=== PATIENT | female | born 1985 | race Caucasian/White ===

== ENCOUNTER → 2017-04-30 08:52 | Outpatient (CLI) | payer OTHER, SELFPAY | PROVIDERS: Family Provider Family Medicine; PCP Family Medicine; Visit Provider Family Medicine | DX: R00.2 Palpitations (principal); R55 Syncope and collapse; R06.02 Shortness of breath | CPT/HCPCS: 93225; 93226 ==

== ENCOUNTER → 2017-08-02 15:32 | Outpatient (CLI) | payer OTHER, SELFPAY | PROVIDERS: Family Provider Family Medicine; PCP Family Medicine; Visit Provider Otolaryngology | DX: J02.9 Acute pharyngitis, unspecified (principal) | CPT/HCPCS: 87070; 87077 ==

== ENCOUNTER 2025-02-08 19:01 | Emergency (ER) | payer OTHER, SELFPAY ==
[2025-02-08 19:07] VITALS: BP 154/103; PULSE 113; RESP 14; TEMP 36.5; O2SAT 100; BMI 28.6
--- NOTE | 2025-02-08 19:22 | EKG12_ITS ---
Test Reason : PALPS Blood Pressure : */* mmHG Vent. Rate : 111 BPM Atrial Rate : 111 BPM P-R Int : 144 ms QRS Dur : 80 ms QT Int : 328 ms P-R-T Axes : 62 29 31 degrees QTcB Int : 446 ms Sinus tachycardia Nonspecific ST abnormality Abnormal ECG Confirmed by Salazar Hilliard ([id number]), video effects editor YAYA WELCH ([id number]) on 02/10/2025 8:35:18 AM Referred By: RU Confirmed By: Salazar Hilliard
--- NOTE | 2025-02-08 19:23 | EDS_ITS ---
HPI History of Present Illness Chief Complaint: Palpitations Detail of Chief Complaint: Tachycardia Informant: patient Narrative Narrative: Patient presents to the emergency department with complaint of tachycardia. States that she was sitting on her couch when she felt like her heart started to race. Patient denies chest pain. She felt mildly short of breath. She tells me that she was seen at urgent care a week ago because she thought she was getting a sinus infection and they noted then that her heart rate was 130. Patient has been improving from that illness a week ago and today is the best she has felt in the last week. Patient also states that she has been having issues with elevated blood pressure over the last 6 months. She is currently not on blood pressure medications. She does not take any decongestions or new medications. No family history of WPW or rhythm abnormalities as far she knows. [facility] Medical History (Updated 02/08/25 @ 23:[address] Christianne Claire, DO) Acute suppurative otitis media with spontaneous rupture of ear drum, unspecified ear Home Medications ?Medication ?Instructions ?Recorded ?Last Taken ?Type norgestimate 0.25 mg-ethinyl 1 tab PO DAILY 02/21/23 U nknown History estradiol 0.035 mg tablet (Sprintec (28)) metoprolol succinate 25 mg 25 mg PO DAILY #30 tabs 09/26 Unknown Rx tablet,extended release 24 hr Allergy/AdvReac Type Severity Reaction Status Date / Time Seasonal Allergies: Uncoded Allergy Mild Other Verified 02/08/25 19:08 Family History (Updated 02/21/23 @ 10:36 by Vicenta Retana) Father CVA (cerebral vascular accident) Surgical History History of placement of ear tubes Social History (Updated 02/21/23 @ 10:37 by Vicenta Retana) Smoking Status: Never smoker alcohol intake: current details: social substance use type: does not use additional social history: pt denies vaping, denies marijuana use, denies edibles, denies aspirin use, Uses ibuprofen and tylenol as needed for back pain ROS ROS ED Review of Systems ROS Unobtainable: other Constitutional Constitutional ED: Reports lethargy; Denies chills, fever(s), sweats or weight loss Eyes Eyes: Denies blurry vision, change in vision or diplopia ENT ENT ED: Denies rhinorrhea or sore throat Cardiovascular Cardiovascular: Reports racing heartbeat; Denies chest pain or orthopnea Respiratory/Chest Respiratory/Chest: Reports dyspnea; Denies cough, dyspnea on exertion, orthopnea or sputum Gastrointestinal Gastrointestinal: Denies abdominal pain, diarrhea, nausea or vomiting Genitourinary Genitourinary ED: Denies dysuria, hematuria or urinary frequency Musculoskeletal Musculoskeletal: Denies arthralgias, back pain, myalgias or neck pain Integumentary Denies abscess, Abrasions or rash Neurologic Neurologic: Denies headache(s) or weakness Psychiatric Psychiatric: Denies anxiety, depression or suicidal thoughts Endocrine Endocrinology: Denies polydipsia, polyphagia or polyuria Hematologic/Lymphatic Hematologic/Lymphatic: Denies easy bleeding, easy bruising or lymphadenopathy Allergic/Immunologic Allergic/Immunologic ED: Denies mouth swelling, tongue swelling or urticaria EXAM Physical Exam Const Vital Signs: 02/08/25 19:07 02/08/25 19:13 02/08/25 21:28 Temperature 97.7 F L Temperature Source Oral Pulse Rate 113 H 122 H Respiratory Rate 14 15 Respiratory Effort Normal Blood Pressure 154/103 H Blood Pressure Mean 120 Pulse Ox 100 100 Oxygen Delivery Method Room Air 02/08/25 23:03 Temperature Temperature Source Pulse Rate 108 H Respiratory Rate 13 Respiratory Effort Blood Pressure Blood Pressure Mean Pulse Ox 99 Oxygen Delivery Method Room Air Positive well nourished and well developed General Appearance ED: well developed and NAD HEENT Reports TM's clear and moist mucous membranes normocephalic and atraumatic; Negative for trauma or tenderness Tympanic Membrane ED: Yes TM's clear Eyes PERRL and EOMs intact bilaterally General Eye ED: Negative for pale conjunctiva or scleral icterus Neck no lymphadenopathy, supple and no JVD General: Negative for tenderness Chest Wall inspection of chest normal and palpation of chest normal Chest: Negative for tenderness Resp normal respiratory effort and clear to auscultation bilaterally Effort and Inspection: Negative for respiratory distress or pain with movement Auscultation: Negative for rhonchi, wheezes or diminished lung sounds Cardio regular rhythm, S1 normal heart sound, S2 normal heart sound and no murmurs; Negative for regular rate Rate: tachycardic Peripheral Pulses: pulses 2+ throughout GI normal to inspection, nondistended, normoactive bowel sounds, soft to palpation, non-tender, non-distended and no masses Back/Spine no CVA tenderness and no thoracic nor lumbar tenderness Extremity normal to inspection General Extremety ED: Negative for edema General Extremity: Negative for edema Neuro oriented x3, CN's II-XII intact bilaterally, no sensory deficits noted and gait normal Sensorium / Orientation: awake, alert, oriented to person, oriented to place and oriented to time Motor Exam: strength 5/5 throughout and strength abnormal Psych mental status grossly normal Skin no rashes or lesions noted and no wounds MDM MDM MDM Narrative Medical decision making narrative: Patient presents with tachycardia while sitting. Also noted to have tachycardia week ago when at urgent care. She also has had been having some elevated blood pressures over the last 6 months or so. She denies recent travel or surgery. She denies chest pain. Clinically looks well. IV line established. EKG obtained on arrival showed a sinus rhythm with rate of 111 bpm with no acute ST segment changes. CBC with differential shows a white count of 13.9 with hemoglobin 12.6 and platelet count of 460. Chemistries unremarkable. Troponin less than six 2-hour delta troponin was 7. TSH slightly elevated 4.99. hCG was negative. Talk screen negative. Alcohol was 52. D-dimer obtained was elevated 0.[address] of the chest was obtained to rule out PE. Results of CT pending. I did discuss case with cardiology who recommended started patient on metoprolol 25 mg daily. They would be happy to follow her up in the office. Care of patient will be turned over to evening physician awaiting CT results and final disposition. Lab Data Attestation: I reviewed the patient's lab results. Labs: Laboratory Results - last 24 hr 02/08/25 02/08/25 02/08/25 19:05 20:49 21:50 WBC 13.9 H RBC 3.98 L Hgb 12.6 Hct 37.0 MCV 93.0 MCH 31.7 MCHC 34.1 RDW Std Deviation 38.4 RDW Coeff of Linda 11.3 L Plt Count 460 H MPV 9.2 Immature Gran % (Auto) 0.600 Neut % (Auto) 54.8 Lymph % (Auto) 36.6 [place] % (Auto) 5.7 Eos % (Auto) 1.7 Baso % (Auto) 0.6 Absolute Neuts (auto) 7.6 Absolute Lymphs (auto) 5.07 H Nucleated RBC % 0 D-Dimer Quant (PE/DVT) 0.78 H* Sodium 133 Potassium 3.3 Chloride 98 Carbon Dioxide 19.2 L Anion Gap 16 H BUN 9 Creatinine 0.71 Estim Creat Clear Calc 113.90 Est GFR (MDRD) Non-Af 110 BUN/Creatinine Ratio 13.1 Glucose 120 H Calcium 9.0 Troponin T High Sens < 6 Troponin T Hi Sens 2 Hr 7 TSH 4.990 H Serum , Qual NEGATIVE Urine Opiates Screen NEGATIVE U Buprenorphine Qual NEGATIVE Ur Oxycodone Screen NEGATIVE Urine Methadone Screen NEGATIVE Urine Fentanyl Screen NEGATIVE Ur Barbiturates Screen NEGATIVE Ur Phencyclidine Scrn NEGATIVE Ur Amphetamines Screen NEGATIVE U Benzodiazepines Scrn NEGATIVE Urine Cocaine Screen NEGATIVE U Cannabinoids Screen NEGATIVE Ethyl Alcohol 52.4 H Radiography Diagnostic Testing: Clinical Impression(s) from Imaging Studies Chest X-Ray 02/08/25 19:35 IMPRESSION: No acute cardiopulmonary abnormality. Reading Location: [facility] Discharge Plan Triage Chief Complaint: Palpitations ED Provider: Christianne Claire Dx/Rx/DC Orders Clinical Impression: Tachycardia, Hypertension Instructions: Understanding Tachycardia, ED Hypertension, To Be Confirmed, ED Tachycardia: PAT Prescriptions: New metoprolol succinate 25 mg tablet extended release 24 hr 25 mg PO DAILY Qty: 30 0RF No Action norgestimate-ethinyl estradiol [Sprintec (28)] 0.25-35 mg-mcg tablet 1 tab PO DAILY Primary Care Provider: Leeanne Hoang Referrals: Rubén Murphy MD [Med Staff - Active Staff, Cardiology] - 3-5 Days Leeanne Hoang PA-C [Primary Care Provider, Medical] Print Language: Upper Sorbian
--- OUTSIDE RECORDS SUMMARY | 2025-02-08 19:30 | XMS RPT_ITS | CCD ---
Author Organization [facility] Care Team Providers Care Staff Training And Development Manager Name Role Phone Mirtha Cuello Attending [place] Argyle CAROLEE, Juan Ramon Referring [facility] Juan Ramon ZARCO Primary Care Unavailable Unavailable Primary Care Provider [facility] JUAN RAMON Ruiz Attending [place] CRANEJUAN RAMON Consulting [place] CRANELAWRENCEJUAN RAMON Primary Care Unavailable CRANEJUAN RAMON Admitting Unavailable PROVIDER, UNKNOWN Consulting Unavailable Allergies Allergy Classification Reported Allergen(s) Allergy Type Date of Onset Reaction(s) Facility (1 source) Seasonal Allergies: Uncoded; Translations: [Seasonal Allergies: Uncoded] Propensity to adverse reactions (disorder) 3 [facility] Repository Problems Problem Classification Problem Date Documented Date Episodic/Chronic Nutritional deficiencies (1 source) Vitamin D deficiency, unspecified; Translations: [Vitamin D deficiency, unspecified] Onset: 01-03-2024 Chronic Other screening for suspected conditions (not mental disorders or infectious disease) (2 sources) Encounter for screening for cardiovascular disorders; Translations: [Encounter for screening for diabetes mellitus] Onset: 01-03-2024 Episodic Thyroid disorders (1 source) Nontoxic goiter, unspecified; Translations: [Nontoxic goiter, unspecified] Onset: 01-03-2024 Chronic Results Test Name Value Interpretation Reference Range Facility T3, FREE [CCL]on 01-04-2024 Free T3 [Mass/Vol] 3.1 pg/mL Normal 2.3-4.1 [facility] Comment on above: Result Comment: [facility] [address] [place] [address] Carlos Vasquez III, M.D. [id number] Performed By: #### 2 08891 #### [facility],[address] [place], [place] [address] THYROGLOBULIN AB [CCL]on Thyroglobulin Ab, Serum <0.9 Normal <4.0 [facility] Comment on above: Result Comment: The Thyroglobulin Antibody test was performed using the [employer] Unicel DXI paramagnetic particle chemiluminescent immunoassay method. Results obtained with different assay methods or kits cannot be used interchangeably. [facility] [address] [place] [address] Carlos Vasquez III, M.D. [id number] Performed By: #### 2 19870 #### [facility],[address] [place] [address] CMP with eGFRon 01-03-2024 AGE 38 years Normal [facility] Comment on above: Performed By: #### 2 62871 #### [address] [address] Albumin [Mass/Vol] 3.4 g/dL Normal 3.4 - 5.0 [facility] Comment on above: Performed By: #### 2 96130 #### [facility],[address] [place] [address]3558 Albumin/Globulin [Mass ratio] 0.9 {ratio} Normal 0.9 - 1.6 [facility] Comment on above: Performed By: #### 2 36361 #### [facility],[address] [place] [address]042 ALK PHOS 61 U/L Normal 46 - 116 [facility] Comment on above: Performed By: #### 2 76099 #### [address] [address] ALT [Catalytic activity/Vol] 42 U/L Normal 16 - 63 [facility] Comment on above: Performed By: #### 2 21380 #### [facility],[address] [place] [address] 24714 Anion gap [Moles/Vol] 12 mmol/L Normal 10 - 20 [facility] Comment on above: Performed By: #### 2 73801 #### [facility],[address] [place] [address] 58377 AST [Catalytic activity/Vol] 30 U/L Normal 13 - 39 [facility] Comment on above: Performed By: #### 2 63610 #### [facility],[address] [place] [address]3949 B/C RATIO 10 ratio Normal 0 - 30 [facility] Comment on above: Performed By: #### 2 27087 #### [facility],[address] [place] [address] 12077 Bilirubin [Mass/Vol] 0.4 mg/dL Normal 0.2 - 1.0 [facility] Comment on above: Performed By: #### 2 82126 #### [facility],[address] [place] [address]389 Calcium [Mass/Vol] 9.0 mg/dL Normal 8.5 - 10.1 [facility] Comment on above: Performed By: #### 2 29508 #### [facility],[address] [place] [address] 48398 Chloride [Moles/Vol] 103 mmol/L Normal 98 - 107 [facility] Comment on above: Performed By: #### 2 42373 #### [facility],[address] [place] [address] 17035 CMP with eGFR Normal [facility] Comment on above: Result Comment: COMP REHENSIVE METABOLIC PANEL Performed By: #### 2 99730 #### [facility],[address] [place] [address] 39294 CO2 [Moles/Vol] 26.6 mmol/L Normal 21.0 - 32.0 [facility] Comment on above: Performed By: #### 2 61848 #### [facility],[address] [place] [address]40 Creatinine [Mass/Vol] 0.90 mg/dL Normal 0.55 - 1.02 [facility] Comment on above: Performed By: #### 2 29299 #### [facility],[address] [place] [address] GFR/1.73 sq M.predicted among non-blacks MDRD (S/P/Bld) [Vol rate/Area] mL/min/{1.73_m2} Normal 60 - 999 [facility] Comment on above: Performed By: #### 2 45224 #### [facility],[address] [place] [address] Result Comment: ACCO RDING TO THE NATIONAL KIDNEY DISEASE EDUCATION PROGRAM(NKDE), A NORMAL eGFR IS A VALUE GREATER THAN OR EQUAL TO 60 ML/MIN/1.73 SQ METERS. CHRONIC KIDNEY DISEASE: <60mL/MIN/1.73 SQ METERS KIDNEY FAILURE: <15mL/MIN/1.73 SQ METERS THIS TEST SHOULD ONLY BE USED FOR PATIENTS 18 YEARS OF AGE AND OLDER. Globulin (S) [Mass/Vol] 4.0 g/dL High 1.5 - 3.8 [facility] Comment on above: Performed By: #### 2 31357 #### [facility],[address] [place] [address]79 Glucose [Mass/Vol] 85 mg/dL Normal 74 - 106 [facility] Comment on above: Performed By: #### 2 60797 #### [facility],[address] [place] [address]116 Potassium [Moles/Vol] 4.0 mmol/L Normal 3.5 - 5.1 [facility] Comment on above: Performed By: #### 2 44577 #### [facility],[address] [place] [address]36 Protein [Mass/Vol] 7.4 g/dL Normal 6.4 - 8.2 [facility] Comment on above: Performed By: #### 2 44285 #### [facility],[address] [place] [address] 76234 Sodium [Moles/Vol] 138 mmol/L Normal 136 - 145 [facility] Comment on above: Performed By: #### 2 23162 #### [facility],[address] [place] [address] 16832 Urea nitrogen [Mass/Vol] 9 mg/dL Normal 7 - 18 [facility] Comment on above: Performed By: #### 2 03910 #### [facility],[address] [place] [address] 56995 LIPID PROFILEon 01-03-2024 Cholesterol [Mass/Vol] 198 mg/dL Normal 0 - 240 [facility] Comment on above: Performed By: #### 2 27477 #### [facility],[address] [place] [address] 70361 Cholesterol in HDL [Mass/Vol] 80 mg/dL High 40 - 60 [facility] Comment on above: Performed By: #### 2 68513 #### [facility],[address] [place] [address] 99701 Cholesterol in LDL [Mass/Vol] 95 mg/dL Normal 0 - 129 [facility] Comment on above: Performed By: #### 2 07885 #### [facility],[address] [place] [address] 20940 Cholesterol.total/ Cholesterol in HDL [Mass ratio] 2.5 {ratio} Normal 0.0 - 5.0 [facility] Comment on above: Performed By: #### 2 71871 #### [facility],[address] [place] [address] 77155 Lipid 1996 panel Normal [facility] Comment on above: Result Comment: LIPI D PROFILE Performed By: #### 2 12591 #### [facility],[address] [place] [address] 45528 Triglyceride [Mass/Vol] 117 mg/dL Normal 0 - 150 [facility] Comment on above: Performed By: #### 2 11543 #### [facility],[address] [place] [address] 22506 T3Free SerPl-mCncon 01-03-20 24 Free T3 [Mass/Vol] 3.1 pg/mL Normal 2.3-4.1 [facility] Comment on above: Order Comment: Yamilet charles Type: BLOOD SPECIMEN Ordering Facility: [facility] Address: [address] [place] [address] Performed By: #### 3 051-0, TGAB #### [facility] CLIA [id number] [address] [place] [address] [place] T4-FREE (FREE THYROXINE)on Free T4 [Mass/Vol] 0.82 ng/dL Normal 0.76 - 1.46 [facility] Comment on above: Result Comment: P otential of falsely elevated results when biotin concentrations are > 10 ng/mL. Performed By: #### 2 93393 #### [facility],[address] [place], [place] [address] THYROGLOBULIN ANTIBODYon Thyroglobulin Ab Qn [IU]/mL Normal <4.0 [facility] Comment on above: Order Comment: Yamilet charles Type: BLOOD SPECIMEN Ordering Facility: [facility] Address: [address] [place] [address] Result Comment: The Thyroglobulin Antibody test was performed using the [employer] DXI paramagnetic particle chemiluminescent immunoassay method. Results obtained with different assay methods or kits cannot be used interchangeably. Performed By: #### 3 051-0, TGAB #### [facility] CLIA [id number] [address] [place] [address] [place] TSHon 01-03-2024 TSH Qn 1.51 m[IU]/L Normal 0.35 - 3.74 [facility] Comment on above: Performed By: #### 2 96336 #### [address] [address] VITAMIN D, 25 HYDROXYon 10- VitD 50.20 ng/mL Normal 30.00 - 100 [facility] Comment on above: Result Comment: 25-O HD3 indicates both endogenous production and supplementation. 25-OHD2 is an indicator of exogenous sources, such as diet or supplementation. Therapy is based on measurement of Total 25-OHD, with levels <20 ng/mL indicative of Vitamin D deficiency, while levels between 20 ng/mL and 30 ng/mL suggest insufficiency. Optimal levels are >=30ng/mL. Vitamin D, 25-OH D3 Not Established Vitamin D, 25-OH D2 Not Established Performed By: #### 2 66344 #### [facility],[address] [facility] [address] 36on 03-02-2023 36 Name of Caller: Earnestine Contact Reason for Appointment: Earnestine submitted an online request on 03/02/23 regarding a call back to get scheduled for a SQUARING SHEAR OPERATOR appt for Dx: Breast Reduction. Earnestine states she would like to get scheduled for an appt ANGEL. Earnestine states she is available for call back anytime. Please contact Earnestine and advise. Office Name: Plastic Surgery Medication Refills need, if any: N/A Medication Name: N/A Normal [facility] Plastic Surgery Visit Report on 02-21-2023 Plastic Surgery Visit Report [facility]astic Reconstructive Surgery [address] [place] [address], [address] [place] [address] OFFICE VISIT Date of Service: 02/21/23 MR#: [id number] Acct: [id number] Name: EARNESTINE CHERY Rep #: [id number] : 1985 Provider: Dr. Mirtha gómez MD Age/Sex: 38/F Location: [facility] Status: Signed Intake Vital Signs 02/21/23 10:37 Height 5 ft 6 in Weight: 169 lb 8 oz BMI 27.3 Blood Pressure Location Lt brachial Position Sitting Respiration 16 Pulse 92 Pulse Source Monitor Temp 97.9 F Temp Source Oral Pulse Oximetry (%) 97 Oxygen Delivery Method room air Intake Visit Reasons: BREAST REDUCTION Chief Complaint: breast reduction consult Allergies Seasonal Allergies: Uncoded Allergy (Mild, Verified 02/21/23 10:40) Other Medications norgestimate 0.25 mg-ethinyl estradiol 35 mcg tablet (Sprintec (28)) 1 tab PO DAILY 02/21/23 [History Confirmed 02/21/23] [facility] Medical History (Updated 02/21/23 @ 12:[address] Mirtha Cuello MD) Acute suppurative otitis media with spontaneous rupture of ear drum, unspecified ear Surgical History (Updated 02/21/23 @ 10:35 by Vicenta Retana) History of placement of ear tubes Family History (Updated 02/21/23 @ 10:36 by Vicenta Retana) Father CVA (cerebral vascular accident) Social History (Updated 02/21/23 @ 10:37 by Vicenta Retana) Smoking Status: Never smoker alcohol intake: current details: social substance use type: does not use additional social history: pt denies vaping, denies marijuana use, denies edibles, denies aspirin use, Uses ibuprofen and tylenol as needed for back pain HPI BREAST REDUCTION Details: Earnestine is a 38-year-old female who is in good health but complains of chronic low back and shoulder pain. She has had to use bras with wide straps to try to control the discomfort in her shoulders without success. She wears a DDD cup size bra. She has seen a chiropractor in the past and takes anti-inflammatories to help with the discomfort. She has not had a mammogram in the past nor is there a family history of breast cancer. She has not had children nor does she plan to breast-feed in the future. She denies use of nicotine or marijuana including edibles. Her PCP has advocated for her to have a breast reduction to alleviate her chronic back pain. ROS General General: Yes good health; No fatigue, fever(s) or weight loss HENMT HENMT: No rhinitis, sore throat/mouth sore, nasal congestion, contacts or glaucoma Endo Endocrine: No thyroid disease, polydipsia, heat intolerance, cold intolerance, hepatitis or excessive urine Skin Skin: No Bleeding, bruising, changing moles or suspicious lesion Musc Musculoskeletal: Yes back pain; No joint pain, joint stiffness, muscle weakness, osteoarthritis or Muscle aches/ myalgia Neuro Neurological: No headache(s), No lightheadedness and No numbness Cardio Cardiovascular: No chest pain, pacemaker, fatigue or shortness of breat with exertion Psych Psychiatric: No depression, claustrophobia or anxiety Resp Respiratory: No spitting up, shortness of breath, sleep apnea, asthma, emphysema, TB, Cough or Smoker Gastro Gastrointestinal: No diarrhea, constipation, blood in stool, nausea, vomiting or abdominal bloating Willi Hematologic: No anemia, No bleeding and No abnormal bleeding Genitourinary: No urinary frequency, blood in urine or incontinence Exam Details Patient with bilateral macromastia and grade 3 ptosis. There are no palpable breast masses or axillary adenopathy. Her breasts have a wide base and appear disproportionately large. She has marked sloping of her shoulders and hypertrophy of the trapezius muscle. Sternal Notch to N/A L-30cm; R-29.5cm; I estimate 350-400 gm reduction each side. The procedure of breast reduction was reviewed at length with the patient including the expected pre-, intra, and postoperative course. The incisions and scars as well as the limitations after surgery were reviewed. 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 I did review with her the potential for limitation in breast-feeding in the future. She is aware that the surgery would be done as an outpatient under a general anesthetic. All removed tissue would be sent for pathologic evaluation. Because of her age and family history, a mammogram would not be necessary prior to surgery. Const General: cooperative HENMT Head: normal to inspection Resp Effort Inspection: normal respiratory effort Neuro General: patient alert and patient oriented x3 Extrem General: normal to inspection Psych Appearance: grossly normal Affect: normal affect Speech and Movement: speech and movement normal Attitude: cooperative Coding Level of Care Code Off osbaldo,melissa,l (more content not included)... Normal [facility] CBC (INCLUDES DIFF/PLT)on Basophils (Bld) [#/Vol] 0.091 10*3/uL Normal 0-200 [facility] Comment on above: Performed By: #### 8 99, 7186, 21942, 76605 #### [facility] [address], [address] [place] [address] Mutuel Cashier: Burt Sanchez MD Basophils/100 WBC (Bld) 0.9 % Normal [facility] Comment on above: Performed By: #### 8 99, 2910, 40087, 52552 #### [facility] of [address], [address] [place] [address] Mutuel Cashier: Burt Sanchez MD Eosinophils (Bld) [#/Vol] 0.111 10*3/uL Normal 15-500 [facility] Comment on above: Performed By: #### 8 99, 6399, 39301, 54248 #### [facility] of [address], [address] [place] [address] Mutuel Cashier: Burt Sanchez MD Eosinophils/100 WBC (Bld) 1.1 % Normal [facility] Comment on above: Performed By: #### 8 99, 6399, 57196, 55736 #### [facility] of [place] [address] Mutuel Cashier: Burt Sanchez MD Erythrocyte distribution width (RBC) [Ratio] 11.7 % Normal 11.0-15.0 [facility] Comment on above: Performed By: #### 8 99, 6399, 74970, 21815 #### [facility] of [place] [address] Mutuel Cashier: Burt Sanchez MD Hematocrit (Bld) [Volume fraction] 39.7 % Normal 35.0-45.0 [facility] Comment on above: Performed By: #### 8 99, 6399, 37953, 02016 #### [facility] of [place] [address] Mutuel Cashier: Burt Sanchez MD Hemoglobin (Bld) [Mass/Vol] 13.3 g/dL Normal 11.7-15.5 [facility] Comment on above: Performed By: #### 8 99, 6399, 45340, 49987 #### [facility] of [place] [address] Mutuel Cashier: Burt Sanchez MD Lymphocytes (Bld) [#/Vol] 2.101 10*3/uL Normal 850-3900 [facility] Comment on above: Performed By: #### 8 99, 6399, 84616, 56519 #### [facility] of [address], [address] [place] [address] Mutuel Cashier: Burt Sanchez MD Lymphocytes/100 WBC (Bld) 20.8 % Normal [facility] Comment on above: Performed By: #### 8 99, 6399, 85050, 68176 #### [facility] of [place] [address] Mutuel Cashier: Burt Sanchez MD MCH (RBC) [Entitic mass] 31.0 pg Normal 27.0-33.0 [facility] Comment on above: Performed By: #### 8 99, 6399, 97801, 63112 #### [facility] of [place] [address] Mutuel Cashier: Burt Sanchez MD MCHC (RBC) [Mass/Vol] 33.5 g/dL Normal 32.0-36.0 [facility] Comment on above: Performed By: #### 8 99, 6399, 90629, 08847 #### [facility] of [place] [address] Mutuel Cashier: Burt Sanchez MD MCV (RBC) [Entitic vol] 92.5 fL Normal 80.0-100.0 [facility] Comment on above: Performed By: #### 8 99, 6399, 18025, 29971 #### [facility] of [place] [address] Mutuel Cashier: Burt Sanchez MD Monocytes (Bld) [#/Vol] 0.556 10*3/uL Normal 200-950 [facility] Comment on above: Performed By: #### 8 99, 6399, 39528, 01456 #### [facility] of [place] [address] Mutuel Cashier: Burt Sanchez MD Monocytes/100 WBC (Bld) 5.5 % Normal [facility] Comment on above: Performed By: #### 8 99, 6399, 91694, 71254 #### [facility] of [address], [address] [place] [address] Mutuel Cashier: Burt Sanchez MD Neutrophils (Bld) [#/Vol] 7.242 10*3/uL Normal 7722-3193 [facility] Comment on above: Performed By: #### 8 99, 6399, 50804, 22389 #### [facility] of [address], [address] [place] [address] Mutuel Cashier: Burt Sanchez MD Neutrophils/100 WBC (Bld) 71.7 % Normal [facility] Comment on above: Performed By: #### 8 99, 6399, 58261, 04096 #### [facility] of [place] [address] Mutuel Cashier: Burt Sanchez MD Platelet mean volume (Bld) [Entitic vol] 10.2 fL Normal 7.5-12.5 [facility] Comment on above: Performed By: #### 8 99, 6399, 83362, 81963 #### [facility] of [place] [address] Mutuel Cashier: Burt Sanchez MD Platelets (Bld) [#/Vol] 397 10*3/uL Normal 140-400 [facility] Comment on above: Performed By: #### 8 99, 6399, 67147, 41821 #### [facility] of [place] [address] Mutuel Cashier: Burt Sanchez MD RBC (Bld) [#/Vol] 4.29 10*6/uL Normal 3.80-5.10 [facility] Comment on above: Performed By: #### 8 99, 6399, 68714, 62400 #### [facility] of [place] [address] Mutuel Cashier: Burt Sanchez MD WBC (Bld) [#/Vol] 10.1 10*3/uL Normal 3.8-10.8 [facility] Comment on above: Performed By: #### 8 99, 6399, 53331, 53124 #### [facility] [address], [address] [place] [address] Mutuel Cashier: Burt Sanchez MD T3, FREEon 06-09-2020 Free T3 [Mass/Vol] 2.6 pg/mL Normal 2.3-4.2 [facility] Comment on above: Performed By: #### 8 99, 6399, 60141, 23689 #### [facility] [address], [address] [place] [address] Mutuel Cashier: Burt Sanchez MD T4, FREEon 06-09-2020 Free T4 [Mass/Vol] 1.0 ng/dL Normal 0.8-1.8 [facility] Comment on above: Performed By: #### 8 99, 6399, 48696, 23727 #### [facility] [address], [address] [place] [address] Mutuel Cashier: Burt Sanchez MD TSHon 06-09-2020 TSH Qn 1.35 m[IU]/L Normal [facility] Comment on above: Result Comment: Refe rence Range > or = 20 Years 0.40-4.50 Ranges First trimester 0.26-2.66 Second trimester 0.55-2.73 Third trimester 0.43-2.91 Performed By: #### 8 99, 6399, 55973, 55308 #### [facility] [place] [address] Mutuel Cashier: Burt Sanchez MD VITAMIN D,25-OH,TOTAL,IAon 0 06-09-2020 VITAMIN D,25-OH,TOTAL,IA 26 ng/mL Low 30-100 [facility] Comment on above: Result Comment: Amelie min D Status 25-OH Vitamin D: Deficiency: <20 ng/mL Insufficiency: 20 - 29 ng/mL Optimal: > or = 30 ng/mL For 25-OH Vitamin D testing on patients on D2-supplementation and patients for whom quantitation of D2 and D3 fractions is required, the QuestAssureD(TM) 25-OH VIT D, (D2,D3), LC/MS/MS is recommended: order code 53036 (patients >2yrs). See Note 1 Note 1 For additional information, please refer to http://[email or web address].Ubersnap/faq/ILF743 (This link is being provided for informational/ educational purposes only.) Performed By: #### 8 99, 8644, 83804, 92120 #### [facility] [address] [facility], [address] [place] [address] Mutuel Cashier: Burt Sanchez MD Encounters Encounter Date Encounter Type Care Provider Facility Start: 01-03-2024 End: 01-03-2024 ambulatory [facility] Start: 03-02-2023 Telephone encounter Roman Rios MD Work Phone: [facility] Comment on above: Appointment Request (SQUARING SHEAR OPERATOR Appt) Start: 02-21-2023 End: 02-21-2023 ambulatory Mirtha Kaye Facility:[facility] Plan of Treatment Date Care Activity Detail Author Start: 2046 RSV Immunization age d 60 or older (1 - 1-dose 60+ series) RSV Immunization aged 60 or older (1 - 1-dose 60+ series) [facility] Start: 01-28-2036 Zoster Vaccines (1 of 2) Zoster Vacc kristel (1 of 2) [facility] Start: 11-03-2022 COVID-19 Vaccine ( season) COVID-19 Vaccine ( season) [facility] Start: 01-28-2016 Screening for malign ant neoplasm of cervix [facility] Start: 2007 Screening for malign ant neoplasm of cervix Pap Smear [facility] Start: 2005 DTaP/Tdap/Td Vaccine s (1 - Tdap) DTaP/Tdap/Td Vaccines (1 - Tdap) [facility] Start: 01-28-2004 Hepatitis C screening Hepatitis C Sc reening [facility] Start: 1998 Depression Screening Depression Scre ening [facility] Start: 1987 MMR Vaccines (1 of 1 - Standard series) MMR Vaccines (1 of 1 - Standard series) [facility] Start: 1987 Varicella vaccination Varicell a Vaccines (1 of 2 - 2-dose childhood series) [facility] Start: 1986 Hepatitis B Vaccines (1 of 3 - 3-dose series) Hepatitis B Vaccines (1 of 3 - 3-dose series) [facility] Start: 1986 HIV screening HIV Screening [facility] Payers Date Payer Category Payer Self-pay 2023 Unknown [id number] 2012 Private Health Insurance [facility] [id number] 2012-Present [address] [place] [address] Commercial [id number] 1985 Unknown [id number] Unknown [id number] Social History Date Type Detail Facility 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 Name of Caller: Earnestine Contact Reason for Appointment: Earnestine submitted an online request on 03/02/23 regarding a call back to get scheduled for a SQUARING SHEAR OPERATOR appt for Dx: Breast Reduction. Earnestine states she would like to get scheduled for an appt ANGEL. Earnestine states she is available for call back anytime. Please contact Earnestine and advise. Office Name: Plastic Surgery Medication Refills need, if any: N/A Medication Name: N/A [facility] Health Note 03-02-2023 Telephone Encounter - Marco Hendrix - 03/02/2023 4:38 PM EST Note Date & Type Note Facility 03-02-2023 Miscellaneous Notes Formattin g of this note might be different from the original. Name of Caller: Earnestine Contact Reason for Appointment: Earnestine submitted an online request on 03/02/23 regarding a call back to get scheduled for a SQUARING SHEAR OPERATOR appt for Dx: Breast Reduction. Earnestine states she would like to get scheduled for an appt ANGEL. Earnestine states she is available for call back anytime. Please contact Earnestine and advise. Office Name: Plastic Surgery Medication Refills need, if any: N/A Medication Name: N/A documented in this encounter [facility] Summary Purpose Family History No Family History Records FoundNo Family History Records FoundNo Family History Records FoundNo Family History Records FoundNo Family History Records Found Advance Directives No Advanced Directives Records FoundNo Advanced Directives Records FoundNo Advanced Directives Records FoundNo Advanced Directives Records FoundNo Advanced Directives Records Found Additional Source Comments INFORMATION SOURCE (unrecogn ized section and content) DATE CREATED AUTHOR 06/09/2020 [facility] DATE CREATED AUTHOR AUTHOR'S ORGANIZ ATION 02/22/2023 [facility] DATE CREATED AUTHOR AUTHOR'S ORGANIZ ATION 03/04/2023 [facility] DATE CREATED AUTHOR AUTHOR'S ORGANIZ ATION 01/05/2024 [facility] DATE CREATED AUTHOR AUTHOR'S ORGANIZ ATION 01/06/2024 [facility] Reason for Visit (unrecogniz ed section and content) Reason Onset Date Comments Appointment Request 03/02/2023 SQUARING SHEAR OPERATOR Appt FOR RECORDS PERTAINING TO PATIENTS WHO ARE OR HAVE BEEN ENROLLED IN A CHEMICAL DEPENDENCY/SUBSTANCEABUSE PROGRAM, SOME INFORMATION MAY BE OMITTED. This clinical summary was aggregated from multiple sources. Caution should be exercised in using it in the provision of clinical care. This summary normalizes information from multiple sources, and as a consequence, information in this document may materially change the coding, format and clinical context of patient data. In addition, data may be omitted in some cases. CLINICAL DECISIONS SHOULD BE BASED ON THE PRIMARY CLINICAL RECORDS. [employer] provides no warranty or guarantee of the accuracy or completeness of information in this document.
[2025-02-08] MEDS: 0.9% Normal Saline (1000mL) 1,000 ML 1000 ML IV (19:31)
[2025-02-08 19:32] LABS: Hematocrit 37.0 % (37-47); Hemoglobin 12.6 g/dL (12.0-15.0); Immature Granulocytes Count 0.090 X10^3/uL (0.0-0.0); Mean Corp Hgb Conc 34.1 g/dL (32-36); Mean Corpuscular Volume 93.0 fL (81-99); Mean Platelet Vol. 9.2 fl (6.2-12.0); NRBC Flagged by Analyzer 0 % (0-5); POSITIVE DIFFERENTIAL YES; Platelet Count 460 K/mm3 (150-450); RBC Distribution Width CV 11.3 % (11.6-14.6); RBC Distribution Width SD 38.4 fl (35.1-43.9); Red Blood Count 3.98 M/mm3 (4.2-5.4); White Blood Count 13.9 K/mm3 (4.4-11.0)
--- NOTE | 2025-02-08 19:35 | RAD_ITS ---
PROCEDURE: CHEST 1 VIEW (PORTABLE) 02/08/2025 REASON FOR EXAM: DYSPNEA TECHNIQUE: Frontal view of the chest. COMPARISON: None FINDINGS: Hardware: None Heart: Cardiac and mediastinal contours are stable. Lungs: The lungs are clear. Bones: The bones are unremarkable. RAD/Chest 1 View (Portable) IMPRESSION: No acute cardiopulmonary abnormality. Reading Location: [facility]
[2025-02-08 19:44] LABS: Internal QC Validated? YES +Cl - CLEAR BKGD; Pregnancy, Serum, hCG Quali. NEGATIVE Negative
[2025-02-08 19:52] LABS: Alcohol, Blood (Medical)-Serum 52.4 mg/dL (<=10.0)
[2025-02-08 20:02] LABS: Anion Gap 16 (5-15); BUN 9 mg/dL (4-19); BUN/Creat Ratio 13.1 RATIO (10-20); Calcium,Total 9.0 mg/dL (7.6-11.0); Carbon Dioxide 19.2 mmol/L (21.0-32.0); Chloride 98 mmol/L (98-108); Estimated Creatinine Clearance 113.90 ml/min (50-250); Glucose 120 mg/dL (70-99); Potassium 3.3 mmol/L (3.3-5.1); Troponin T High Sensitivity < 6 ng/L (<=14)
[2025-02-08 21:22] LABS: Barbiturate Urine NEGATIVE (< 200 ng/mL); Benzodiazepine Urine NEGATIVE (< 200 ng/mL); PCP Urine NEGATIVE (< 25 ng/mL); THC Urine NEGATIVE (< 50 ng/mL)
[2025-02-08 21:28] VITALS: PULSE 122; RESP 15; O2SAT 100
[2025-02-08] MEDS: Metoprolol(XL)Succ 25 MG Tablet PO (21:32)
[2025-02-08 21:37] LABS: D-Dimer Quantitative (DVT/PE) 0.78 FEU/ug/m (0.27-0.49)
--- NOTE | 2025-02-08 22:05 | CT_ITS ---
PROCEDURE: CTA CHEST W/WO CONTRAST 02/08/2025 REASON FOR EXAM: TACHYCARDIA, ELEVATED D-DIMER TECHNIQUE: Procedure Code: [id number] Modality: CT Procedure: CTA CHEST W/WO CONTRAST Multiplanar Sagittal and Coronal images were obtained. CONTRAST: 100 mL of Isovue 370 One or more dose reduction techniques were used (e.g., Automated exposure control, adjustment of the mA and/or kV according to patient size, use of iterative reconstruction technique). RADIATION DOSE SUMMARY: DLP: 570 mGycm COMPARISON: None FINDINGS: PULMONARY ARTERIES: No evidence of pulmonary embolism. LUNGS AND PLEURA: No consolidations. Right midlung calcified granuloma. No definite pulmonary edema. No mass or nodule. No pleural effusion. No pneumothorax. MEDIASTINUM: No lymphadenopathy or mass. Right hilar calcified lymph. The heart shows no acute findings. The aorta shows no acute findings. The pulmonary trunk, and branches of the vessels in the mediastinum are within normal limits. SUPRACLAVICULAR AND AXILLARY: No abnormalities seen in these regions. No mass or significant lymphadenopathy. UPPER ABDOMEN: The visualized upper abdomen is unremarkable. BONES AND SOFT TISSUES: The ribs are unremarkable. The visualized spine shows no significant acute findings. No focal bony mass lesions noted. The subcutaneous soft tissues are unremarkable. CT/CTA Chest W/WO Contrast IMPRESSION: No acute pulmonary emboli. No focal consolidations. Reading Location: [facility]
[2025-02-08 22:19] LABS: Troponin T High Sens 2 HR 7 ng/L (<=14)
[2025-02-08 23:03] VITALS: PULSE 108; RESP 13; O2SAT 99
[2025-02-09 00:06] VITALS: PULSE 114; RESP 17; O2SAT 100
--- NOTE | 2025-02-09 00:36 | ED.RN ---
Patient family member inquiring about length of CT read expressing frustration this is not expectable This nurse educated and apologized again due to length of time, staff has reached out multiple times regarding CT results. it support manager and Doctor updated.
[2025-02-09 00:49] VITALS: BP 149/86; PULSE 110; RESP 16; TEMP 36.6; O2SAT 100
== END 2025-02-09 00:50 | disposition home or self-care (01) ==
PROVIDERS: Emergency Provider Emergency Medicine; PCP Family Medicine; Visit Provider Emergency Medicine
DX: R00.0 Tachycardia, unspecified (principal); R00.2 Palpitations; I10 Essential (primary) hypertension; R06.00 Dyspnea, unspecified; R94.31 Abnormal electrocardiogram [ECG] [EKG]
CPT/HCPCS: 71045; 71275; 80048; 80307; 82077; 84443; 84484; 84703; 85025; 85379; 93005; 96360; 99285; Q9967; A4216